=== PATIENT | male | born 1950 | race Caucasian/White ===

== ENCOUNTER 2017-09-15 15:42 | Outpatient (CLI) | payer MEDICARE ==
--- NOTE | 2017-09-15 16:22 | RAD ---
LEFT ANKLE THREE VIEWS: 09/15/17 HISTORY: Ankle swelling and soreness. No injury. There is no signs of fracture or evidence of joint effusion. Calcaneal spur at the insertion of the p lantar fascia is noted. There is some vascular calcifications seen. IMPRESSION: No acute changes. POS: [facility]
== END 2017-09-15 15:43 | disposition home or self-care (01) ==
LOC: SCSRAD 15:42
PROVIDERS: ATTEND Family Medicine
DX: M25.572 Pain in left ankle and joints of left foot (principal)

== ENCOUNTER 2021-09-11 12:14 | Outpatient (CLI) | payer MEDICARE | END 2021-09-11 12:15 | disposition home or self-care (01) | LOC: TBSIIMAG 12:14 | PROVIDERS: ATTEND Neurological Surgery | DX: M54.12 Radiculopathy, cervical region (principal); Z98.1 Arthrodesis status; Z98.890 Other specified postprocedural states | CPT/HCPCS: 72040 ==

== ENCOUNTER 2021-11-07 09:58 | Outpatient (CLI) | payer MEDICARE | END 2021-11-07 09:59 | disposition home or self-care (01) | LOC: TBSIIMAG 09:58 | PROVIDERS: ATTEND Neurological Surgery | DX: M54.12 Radiculopathy, cervical region (principal); Z98.1 Arthrodesis status | CPT/HCPCS: 72040 ==